=== PATIENT | male | born 1970 | race Caucasian/White ===

== ENCOUNTER 2022-03-17 09:26 | Day surgery (SDC) | payer OTHER, SELFPAY ==
[2022-03-17 09:48] VITALS: BMI 43.0
[2022-03-17 09:53] VITALS: BP 179/105; PULSE 76; RESP 18; TEMP 36; O2SAT 96
--- NOTE | 2022-03-17 10:18 | ANES.PREANE2 ---
Pre-Anesthetic Assessment Height/Weight: Height 1.78 m Weight 136.078 kg Temp Pulse Resp BP Pulse Ox O2 Del Method 96.8 F L 76 18 179/105 96 03/17/22 09:53 03/17/22 09:53 03/17/22 09:53 03/17/22 09:53 03/17/22 09:53 03/17/22 09:53 Operation Date: 03/17/22 11:00 Proposed Procedures p Colonoscopy 67299/Z12.11(Not Applicable) - Hilario Dobbins DO Familial anesthetic complications: None Was Beta Wong taken within 24 hours: N/A Was Clonidine taken within 24 hours: N/A Last intake: Intake Last Liquid Date 03/16/22 Last Liquid Time 22:00 Last Solid Date 03/15/22 Last Solid Time 22:00 Social No alcohol and No tobacco Exam alert, oriented x 3, clear to auscultation bilaterally and regular rate & rhythm Airway Mallampati: Class IV Dentition: chipped (front) Comments: Comments: large neck and tongue Metabolic Morbid Obesity Anesthetic Plan ASA status: 2 Anesthesia: MAC Risk of > 500 ml blood loss (7ml/kg in children): No Medications/Allergies Home Medications Medication Instructions Recorded Confirmed Last Taken Type No Known Home Medications 03/17/22 03/17/22 Unknown History Allergies Allergy/AdvReac Type Severity Reaction Status Date / Time No Known Allergies Allergy Unverified 03/17/22 09:45 Data Anesthesia Cardiac Studies: No Data to Display
[2022-03-17] MEDS: sodium chloride 0.9% 1,000 ML 30 ML IV (10:30)
--- NOTE | 2022-03-17 11:06 | PM.HP ---
Providers/Chief Complaint Primary Care Provider: ROBER Castanon Chief Complaint: encounter for screening for malignant neoplasm History of Present Illness Martin Fatima is a 51 year old male who presents for his first screening colonoscopy. Review of Systems General: Reports: 10 or more systems reviewed and unremarkable except in HPI and below Medications/Allergies Home Medications Medication Instructions Recorded Confirmed Last Taken Type No Known Home Medications 03/17/22 03/17/22 Unknown History Allergies Allergy/AdvReac Type Severity Reaction Status Date / Time No Known Allergies Allergy Unverified 03/17/22 09:45 Vitals/I&O/Wt Last Vital Signs Temp 96.8 F L 03/17/22 09:53 Pulse 76 03/17/22 09:53 Resp 18 03/17/22 09:53 BP 179/105 03/17/22 09:53 Pulse Ox 96 03/17/22 09:53 O2 Del Method 03/17/22 09:53 Weight last 48 hrs Weight 300 lb Physical Exam Narrative: General : Patient is well developed , no acute distress, oriented x3 Head : Normal cephalic, a-traumatic. Ears : Pinnae and external canal are normal. Hearing is normal. Eyes : PERRLA, Sclera and injection are normal. No conjunctival discharge. Nose : Mucous membranes are without erythema. Throat : buccal mucosa is normal, gums are without significant recession or hypertrophy. Lungs : Equal chest rise bilaterally, no use of accessory muscles, trachea is midline. Cor : Rate and rhythm are normal. Abdomen : Soft, ND, NT, no g/r/m Extremities : No edema, no cyanosis or clubbing, dorsalis pedis pulses are present bilaterally, non-tender to palpation of calves. Upper extremities are normal bilaterally. Back : non-tender to palpation, no CVA tenderness. Neuro : CN II - XII intact, Upper and lower extremities have equal and full strength A&P Assessment and plan (1) Colon cancer screening: Status: Acute Plan Colonoscopy The risks and benefits of the procedure, including bleeding, infection, intestinal perforation requiring surgery, missed lesion, or explained to the patient. He is understanding of the risks and wishes to proceed. Attestations Medical Necessity Statement*: Patient will go home Coding Level of Care Code Acute [employer] for [facility] Diagnoses Colon cancer screening Z12.11
[2022-03-17 12:00] VITALS: BP 137/96; PULSE 73; RESP 18; TEMP 36.1; O2SAT 95
[2022-03-17 12:09] VITALS: BP 138/94; PULSE 71; RESP 18; O2SAT 96
--- NOTE | 2022-03-17 12:15 | ANE.PACU2 ---
Inpatient post-anesthesia follow up: Airway intact: Yes Vital signs: Temperature 97.0 F Pulse Rate 71 Respiratory Rate 18 Blood Pressure 138/94 Pulse Oximetry 96 Oxygen Delivery Me thod Room Air Oxygen Flow Rate 3 Fraction of Inspir ed Oxygen Hydration adequate: Yes Nausea and vomiting: No Pain level: 1 Mental status: Baseline
== END 2022-03-17 12:17 | disposition home or self-care (01) ==
PROVIDERS: PCP Nurse Practitioner Family; Visit Provider Surgery
PROC: 0DJD8ZZ Inspection of Lower Intestinal Tract, Via Natural or Artificial Opening Endoscopic (ICD-10-PCS; CPT 45378; principal; 2022-03-17 11:00)
DX: Z12.11 Encounter for screening for malignant neoplasm of colon (principal); D12.2 Benign neoplasm of ascending colon; K62.1 Rectal polyp; E66.01 Morbid (severe) obesity due to excess calories; Z68.41 Body mass index [BMI] 40.0-44.9, adult
CPT/HCPCS: 45385; 88305; J2704; J7030